=== PATIENT | male | born 1950 | race Caucasian/White ===

== ENCOUNTER → 2020-08-04 | Outpatient (CLI) | payer MEDICARE, BC | END | disposition home or self-care (01) | LOC: LABPAT 12:03 | PROVIDERS: ATTEND Student in an Organized Health Care Education/Training Program | DX: Z20.822 Contact with and (suspected) exposure to COVID-19 (principal) | CPT/HCPCS: U0003; C9803; U0005 ==

== ENCOUNTER 2020-08-11 19:23 | Emergency (ER) | payer MEDICARE, BC ==
[2020-08-11 19:36] VITALS: BP 101/60; PULSE 70; RESP 18; TEMP 98.8
--- NOTE | 2020-08-11 20:51 | ED ---
General Adult HPI - General Chief complaint: Abdominal Pain Stated complaint: Abdominal pain Time Seen by Provider: 08/11/20 20:46 Source: patient, EMS Mode of arrival: EMS Limitations: physical limitation - History of Present Illness Initial comments: Patient is a 70-year-old male with history of hypertension, presenting to the emergency Department with concerns of a hernia that showed up this evening. He shouldn't has been dealing with abdominal ascites for many months now, he is having a routine colonoscopy tomorrow and he started prepping for this evening. Patient states after he drank the first bottle of prep he started noticing a little bit of discomfort and passing a lot of gas and then noticed a small hernia show up at the bottom of his scar. Patient has a long scar from a CABG surgery and the ventral hernia is on the very bottom of the scar. He denies any nausea or vomiting, he has been having bowel movements since starting the prep, he's been passing gas. He denies any significant pain of the area, he is having some pressure but states he always has pressure. He denies any fevers or chills, no chest pain or short of breath. He has no further complaints. Upon arrival to the ER, his vital signs are stable. - Related Data Home Medications Medication Instructions Recorded Confirmed ALPRAZolam [Xanax] 0.25 mg PO DAILY PRN 08/08/20 08/08/20 Acai [place] Extract [Acai] 500 mg PO BID 08/08/20 08/08/20 Ascorbic Acid [Vitamin C] 500 mg PO DAILY 08/08/20 08/08/20 Aspirin 81 mg PO DAILY 08/08/20 08/08/20 Ferrous Sulfate [Iron] 325 mg PO MOTH 08/08/20 08/08/20 Levothyroxine Sodium [Synthroid] 200 mcg PO DAILY 08/08/20 08/08/20 Magnesium Oxide 400 mg PO BID 08/08/20 08/08/20 Nitroglycerin Sl Tabs [Nitrostat] 0.4 mg SUBLINGUAL Q5M PRN 08/08/20 08/08/20 Omeprazole 20 mg PO DAILY PRN 08/08/20 08/08/20 Potassium Chloride 1 tbsp PO BID 08/08/20 08/08/20 Psyllium Husk (with Sugar) 1 dose PO TID 08/08/20 08/08/20 [Metamucil Powder] Ranolazine [Ranexa] 500 mg PO BID 08/08/20 08/08/20 Rosuvastatin [Crestor] 10 mg PO HS 08/08/20 08/08/20 Tamsulosin HCl [Flomax] 0.4 mg PO BID 08/08/20 08/08/20 Timolol 0.5% Ophth Soln [Timoptic 1 drop BOTH EYES BID 08/08/20 08/08/20 0.5% Ophth Soln] Ubidecarenone [Co Q-10] 100 mg PO DAILY 08/08/20 08/08/20 Vitamin B Complex 1 each PO DAILY 08/08/20 08/08/20 lisinopriL [Zestril] 2.5 mg PO DAILY 08/08/20 08/08/20 Allergies Allergy/AdvReac Type Severity Reaction Status Date / Time acetaminophen Allergy Unknown Verified 08/11/20 19:35 ezetimibe [From Vytorin] Allergy Unknown Verified 08/11/20 19:35 gabapentin [From Neurontin] Allergy Unknown Verified 08/11/20 19:35 morphine Allergy Unknown Verified 08/11/20 19:35 NSAIDS (Non-Steroidal Allergy Unknown Verified 08/11/20 19:35 Anti-Inflamma pregabalin [From Lyrica] Allergy Unknown Verified 08/11/20 19:35 simvastatin [From Vytorin] Allergy Unknown Verified 08/11/20 19:35 sorbitol Allergy Chest Pain Verified 08/11/20 19:35 Review of Systems ROS Statement: Those systems with pertinent positive or pertinent negative responses have been documented in the HPI. ROS Other: All systems not noted in ROS Statement are negative. Past Medical History Past Medical History: GERD/Reflux, Hyperlipidemia, Hypertension, Myocardial Infarction ([place]) Additional Past Medical History / Comment(s): exposed to orange agent, glaucoma,anemia, swelling and bloating in stomach, hx low platelets received infusions in past, potential thryoid problems, Last Myocardial Infarction Date:: 2006 History of Any Multi-Drug Resistant Organisms: None Reported Past Surgical History: Coronary Bypass/CABG, Heart Catheterization With Stent, Hernia Repair, Pacemaker Additional Past Surgical History / Comment(s): CABG, AICD [employer] , Past Anesthesia/Blood Transfusion Reactions: No Reported Reaction Date of Last Stent Placement:: 03/06/2019 Type of Cardiac Device: Permanent Pacemaker, AICD Device Placement Date:: 04/07 Past Psychological History: Anxiety, Depression, PTSD Smoking Status: Former smoker Past Alcohol Use History: Occasional Past Drug Use History: None Reported General Exam - General Exam Comments Initial Comments: GENERAL: Patient is well-developed and well-nourished. Patient is nontoxic and in no acute distress. HEAD: Atraumatic, normocephalic. EYES: Pupils equal round and reactive to light, extraocular movements intact, sclera anicteric, conjunctiva are normal. Eyelids were unremarkable. ENT: Nares patent, oropharynx clear without exudates. Moist mucous membranes. NECK: Normal range of motion, supple without lymphadenopathy or JVD. LUNGS: Unlabored respirations. Breath sounds clear to auscultation bilaterally and e qual. No wheezes rales or rhonchi. HEART: Regular rate and rhythm without murmurs, rubs or gallops. ABDOMEN: Patient's abdomen is distended however this is not new for him, he has been like this for many months. Does have a very small, 1 cm in diameter reducible ventral hernia around the epigastric area near his abdominal incision. There is no pain around the area. Normoactive bowel sounds. No guarding, no rebound. No masses appreciated. : Deferred MUSCULOSKELETAL: Normal extremities with adequate strength and normal range of motion, no pitting or edema. No clubbing or cyanosis. NEUROLOGICAL: Patient is alert and oriented x 3. Motor and sensory are also intact. Cranial nerves II through XII grossly intact. Symmetrical smile. Normal speech, normal gait. PSYCH: Normal mood, normal affect. SKIN: Warm, Dry, normal turgor, no rashes or lesions noted. Limitations: physical limitation Course Vital Signs 08/11/20 19:26 Temperature 98.8 F Pulse Rate 70 Respiratory 18 Rate Blood Pressure 101/60 O2 Sat by Pulse 95 Oximetry Medical Decision Making - Medical Decision Making Patient is a 70-year-old male with history of hypertension, presenting with a new ventral hernia that he noticed this evening. He is currently prepping for his colonoscopy tomorrow, he did one bottle of prep and noticed a small ventral hernia next to his scar. He denies any pain. He does have history of abdominal distention for the past few months, this is not changed. Movements, passing gas and starting his prep. His exam reveals a 1 cm ventral hernia, this is reducible, no pain with palpation. I discussed the patient he can follow up with his surgeon regarding this hernia. Return parameters were discussed with the patient he verbalizes understanding. He is stable for discharge and he is in agreement with this plan and care. Case discussed with Dr. Meadows. Disposition Clinical Impression: Ventral hernia Disposition: HOME SELF-CARE Condition: Stable Instructions (If sedation given, give patient instructions): Ventral Hernia (ED) Additional Instructions: Please return to the Emergency Department if symptoms worsen or any other concerns. Follow-up with your surgeon/GI doctor regarding the hernia. Is patient prescribed a controlled substance at d/c from ED?: No Referrals: Pelon Gaming DO [Primary Care Provider] - 1-2 days Time of Disposition: 20:51
== END 2020-08-11 21:01 | disposition home or self-care (01) ==
LOC: EC 19:23
DX: K43.9 Ventral hernia without obstruction or gangrene (principal); I25.2 Old myocardial infarction; I10 Essential (primary) hypertension; E78.5 Hyperlipidemia, unspecified; F32.9 Major depressive disorder, single episode, unspecified; F41.9 Anxiety disorder, unspecified; K21.9 Gastro-esophageal reflux disease without esophagitis; Z79.82 Long term (current) use of aspirin; Z79.890 Hormone replacement therapy; Z79.899 Other long term (current) drug therapy; Z88.6 Allergy status to analgesic agent; Z88.8 Allergy status to other drugs, medicaments and biological substances; Z88.5 Allergy status to narcotic agent; Z87.891 Personal history of nicotine dependence; Z95.1 Presence of aortocoronary bypass graft; Z95.5 Presence of coronary angioplasty implant and graft; Z95.0 Presence of cardiac pacemaker
CPT/HCPCS: 99284

== ENCOUNTER → 2020-08-11 | Outpatient (CLI) | payer MEDICARE, BC ==
[2020-08-11 10:29] LABS: HCT 36.3 % (39.0-53.0); HGB 11.8 gm/dL (13.0-17.5); MCHC 32.6 g/dL (31.0-37.0); MCV 104.4 fL (80.0-100.0); Macrocytosis Slight; Mean Platelet Volume 10.1; Platelet Count 100 k/uL (150-450); RBC 3.47 m/uL (4.30-5.90); RDW 12.8 % (11.5-15.5); WBC 6.3 k/uL (3.8-10.6)
== END | disposition home or self-care (01) ==
LOC: LABPAT 09:03
PROVIDERS: ATTEND Student in an Organized Health Care Education/Training Program
DX: Z01.818 Encounter for other preprocedural examination (principal); D69.6 Thrombocytopenia, unspecified
CPT/HCPCS: 85027

== ENCOUNTER → 2020-08-11 | Outpatient (CLI) | payer MEDICARE, BC ==
[2020-08-11 15:24] LABS: T4, Free (Free Thyroxine) 1.6 ng/dL (0.80-1.80)
== END | disposition home or self-care (01) ==
LOC: LABWHC1 09:05
PROVIDERS: ATTEND Family Medicine
DX: E03.9 Hypothyroidism, unspecified (principal)
CPT/HCPCS: 36415; 84439; 84443

== ENCOUNTER → 2020-08-12 | Day surgery (SDC) | payer MEDICARE, BC ==
[2020-08-08 14:13] VITALS: BMI 22.1
[~2020-08-12] MED LIST: LIDOCAINE 1% (10MG/ML) FOR IV START INTRADERMA PRN; LIDOCAINE 1% INJ 10MG/ML (20 ML MDV) ONE; PROPOFOL 10 MG/ML 20 ML VIAL IV ONE
[2020-08-12 10:28] VITALS: TEMP 97.1
[2020-08-12] MEDS: LACTATED RINGERS 1,000 ML IV SCH ×2 (10:35→11:29)
[2020-08-12 11:34] VITALS: RESP 16
--- NOTE | 2020-08-12 11:38 | P.OP ---
Date of Procedure: 08/12/20 Preoperative Diagnosis: Screening colonoscopy Postoperative Diagnosis: Same Procedure(s) Performed: Colonoscopy with hot snare polypectomy Anesthesia: MAC Surgeon: Aakash Mary Estimated Blood Loss (ml): 0 Condition: stable Disposition: PACU Description of Procedure: Patient was brought into the Endo suite placed in the left lateral decubitus position underwent sedation per department of anesthesia timeout performed correct patient correct procedure correct site was verified rectal exam was performed no gross abnormalities noted scope was passed from the rectum to the cecum with the slowly withdrawn make sure to visualize all prado of the colon on the way out there was one small rectal polyp that was pedunculated was removed via hot snare polypectomy and sent to pathology. No other gross abnormalities are noted scope was retroflexed in the rectum and no gross abnormalities are noted patient hard procedure well no apparent complications
[2020-08-12 11:54] VITALS: BP 113/68; PULSE 67
== END | disposition home or self-care (01) ==
LOC: ORWHC2ENDO 09:57
PROVIDERS: ATTEND Student in an Organized Health Care Education/Training Program
DX: Z12.11 Encounter for screening for malignant neoplasm of colon (principal); K62.1 Rectal polyp; M19.90 Unspecified osteoarthritis, unspecified site; I48.91 Unspecified atrial fibrillation; I25.10 Atherosclerotic heart disease of native coronary artery without angina pectoris; K21.9 Gastro-esophageal reflux disease without esophagitis; I25.2 Old myocardial infarction; I10 Essential (primary) hypertension; E78.5 Hyperlipidemia, unspecified; E03.9 Hypothyroidism, unspecified; F41.9 Anxiety disorder, unspecified; F32.9 Major depressive disorder, single episode, unspecified; Z86.010 Personal history of colon polyps; Z80.0 Family history of malignant neoplasm of digestive organs; Z79.82 Long term (current) use of aspirin; Z79.890 Hormone replacement therapy; Z79.899 Other long term (current) drug therapy; Z83.3 Family history of diabetes mellitus; Z82.49 Family history of ischemic heart disease and other diseases of the circulatory system; Z80.3 Family history of malignant neoplasm of breast; Z87.891 Personal history of nicotine dependence; Z88.8 Allergy status to other drugs, medicaments and biological substances; Z88.6 Allergy status to analgesic agent; Z95.1 Presence of aortocoronary bypass graft; Z95.810 Presence of automatic (implantable) cardiac defibrillator
CPT/HCPCS: 88305; 45385; J2001; J2704